=== PATIENT | female | born 1940 | race Caucasian/White ===

== ENCOUNTER 2020-04-04 07:12 | Outpatient (REF) | payer MEDICARE, SELFPAY ==
[2020-04-04 11:53] LABS: Creatinine Urine 49.93 mg/dL
[2020-04-04 12:01] LABS: Estimated Average Glucose 148 mg/dL; Hemoglobin A1c % 6.8 %
[2020-04-04 12:14] LABS: Alanine Aminotransferase 11 U/L (0-31); Anion Gap 15 (12-20); Blood Urea Nitrogen 12 mg/dL (9-16); Carbon Dioxide 28 mmol/L (22-29); Chloride 102 mmol/L (96-108); Estimated Glomerular Filt Rate > 60; Glucose Fasting 118 mg/dL (60-99); Potassium 4.9 mmol/l (3.3-5.1); Sodium 140 mmol/L (135-145)
== END 2020-04-04 07:13 | disposition home or self-care (01) ==
LOC: HO.HMGCLDS 07:12
PROVIDERS: PCP Family Medicine; Visit Provider Family Medicine
DX: I10 Essential (primary) hypertension (principal); E11.9 Type 2 diabetes mellitus without complications; E78.00 Pure hypercholesterolemia, unspecified; Z79.899 Other long term (current) drug therapy
CPT/HCPCS: 80051; 82043; 82550; 82565; 82947; 83036; 84460; 84520

== ENCOUNTER 2020-11-11 06:24 | Outpatient (REF) | payer MEDICARE, SELFPAY ==
[2020-11-11 12:14] LABS: Alanine Aminotransferase 8 U/L (0-31); Anion Gap 13 (12-20); Blood Urea Nitrogen 12 mg/dL (9-16); Carbon Dioxide 28 mmol/L (22-29); Chloride 104 mmol/L (96-108); Cholesterol 142 mg/dL; Estimated Glomerular Filt Rate > 60; Glucose Fasting 122 mg/dL (60-99); HDL Cholesterol 52 mg/dL; LDL Cholesterol Calculated 73 mg/dl; Potassium 4.5 mmol/L (3.3-5.1); Sodium 140 mmol/L (135-145); Triglycerides 88 mg/dL
[2020-11-11 12:15] LABS: Estimated Average Glucose 143 mg/dL; Hemoglobin A1c % 6.6 %
[2020-11-11 12:28] LABS: Creatinine Urine 53.13 mg/dL; Microalbum/Creatinine Ratio Ur 39.5 ug/mg cr
== END 2020-11-11 06:25 | disposition home or self-care (01) ==
LOC: HO.HMGCLDS 06:24
PROVIDERS: PCP Family Medicine; Visit Provider Family Medicine
DX: I10 Essential (primary) hypertension (principal); E11.9 Type 2 diabetes mellitus without complications; E78.00 Pure hypercholesterolemia, unspecified; Z79.899 Other long term (current) drug therapy
CPT/HCPCS: 36415; 80051; 80061; 82043; 82550; 82565; 82947; 83036; 84460; 84520

== ENCOUNTER 2021-04-30 06:21 | Outpatient (REF) | payer MEDICARE, SELFPAY ==
--- NOTE | 2021-04-30 06:33 | ECG_ITS ---
Test Reason : cp Blood Pressure : / mmHG Vent. Rate : 060 BPM Atrial Rate : 060 BPM P-R Int : 186 ms QRS Dur : 082 ms QT Int : 392 ms P-R-T Axes : 078 -19 074 degrees QTc Int : 392 ms Normal sinus rhythm Septal infarct , age undetermined Abnormal ECG When compared with ECG of 27-JUL-2019 07:46, Vent. rate has decreased BY 32 BPM QT has shortened Referred By: Som Mc Electronically Signed By:OLIVIA MAYERS MD
[2021-04-30 07:43] LABS: Estimated Average Glucose 137 mg/dL; Hemoglobin A1c % 6.4 %
[2021-04-30 07:46] LABS: Anion Gap 10 (12-20); Blood Urea Nitrogen 11 mg/dL (9-16); Carbon Dioxide 29 mmol/L (22-29); Chloride 102 mmol/L (96-108); Estimated Glomerular Filt Rate > 60; Glucose Fasting 133 mg/dL (60-99); Potassium 4.3 mmol/L (3.3-5.1); Sodium 137 mmol/L (135-145)
== END 2021-04-30 06:22 | disposition home or self-care (01) ==
LOC: HO.LAB 06:21
PROVIDERS: PCP Family Medicine; Visit Provider Family Medicine
DX: I10 Essential (primary) hypertension (principal); E11.9 Type 2 diabetes mellitus without complications
CPT/HCPCS: 36415; 80051; 82565; 82947; 83036; 84520; 93005

== ENCOUNTER 2021-10-26 06:33 | Outpatient (REF) | payer MEDICARE, SELFPAY ==
[2021-10-26 12:46] LABS: MANUAL DIFF FLAG NO
[2021-10-26 12:59] LABS: Basophils Absolute Auto 0.1 X10*3/uL (0.0-0.2); Basophils Percent Auto 1.2 % (0-2); Eosinophils Absolute Auto 0.2 X10*3/uL (0.0-0.4); Eosinophils Percent Auto 3.1 % (0-4); Hematocrit 40.2 % (37.0-47.0); Hemoglobin 12.5 g/dl (12.0-16.0); Imm Gran Abs Auto 0.02 X10*3/uL (0.00-0.03); Imm Gran Pct Auto 0.4 % (0.0-0.4); Lymphocytes Absolute Auto 1.1 X10*3/uL (1.2-4.9); Lymphocytes Percent Auto 21.1 % (20-40); Mean Corpuscular HGB Conc 31.1 g/dl (31.0-35.0); Mean Corpuscular Hemoglobin 26.1 pg (27.0-33.0); Mean Corpuscular Volume 83.9 fL (80.0-98.0); Mean Platelet Volume 9.9 fL (9.4-12.3); Monocytes Absolute Auto 0.4 X10*3/uL (0.1-1.2); Neutrophils Absolute Auto 3.4 x10*3/uL (2.0-8.3); Neutrophils Percent Auto 66.2 % (45-73); Platelet Count 155 X10*3/uL (160-400); Red Blood Count 4.79 X10*6/uL (4.20-5.50); Red Cell Distribution Width 14.2 % (11.0-16.0); White Blood Count 5.1 X10*3/uL (4.8-10.8)
[2021-10-26 13:14] LABS: Alanine Aminotransferase 13 U/L (0-31); Alkaline Phosphatase 74 U/L (39-117); Anion Gap 10 (12-20); Aspartate Amino Transferase 16 U/L (5-31); Bilirubin Total 0.4 mg/dL (0.0-1.0); Blood Urea Nitrogen 9 mg/dL (9-16); Carbon Dioxide 29 mmol/L (22-29); Chloride 100 mmol/L (96-108); Cholesterol 149 mg/dL; Estimated Glomerular Filt Rate > 60; Glucose Fasting 139 mg/dL (60-99); HDL Cholesterol 51 mg/dL; LDL Cholesterol Calculated 84 mg/dl; Lipase 37 U/L (8-78); Potassium 4.7 mmol/L (3.3-5.1); Sodium 134 mmol/L (135-145); Total Protein 6.1 g/dL (6.5-8.0); Triglycerides 73 mg/dL
[2021-10-26 13:19] LABS: Estimated Average Glucose 140 mg/dL; Hemoglobin A1c % 6.5 %
[2021-10-26 13:33] LABS: Microalbum/Creatinine Ratio Ur 29.9 ug/mg cr
== END 2021-10-26 06:34 | disposition home or self-care (01) ==
LOC: HO.HMGCLDS 06:33
PROVIDERS: Visit Provider Family Medicine
DX: R10.13 Epigastric pain (principal); E11.9 Type 2 diabetes mellitus without complications; E78.00 Pure hypercholesterolemia, unspecified; Z79.899 Other long term (current) drug therapy
CPT/HCPCS: 36415; 80053; 80061; 82043; 82550; 83036; 83690; 85025

== ENCOUNTER 2022-03-05 06:57 | Outpatient (REF) | payer MEDICARE, SELFPAY ==
[2022-03-05 12:17] LABS: Blood Urea Nitrogen 6 mg/dL (9-16); Estimated Glomerular Filt Rate > 60
== END 2022-03-05 06:58 | disposition home or self-care (01) ==
LOC: HO.HMGCLDS 06:57
PROVIDERS: PCP Family Medicine; Visit Provider Family Medicine
DX: I10 Essential (primary) hypertension (principal)
CPT/HCPCS: 36415; 82565; 84520

== ENCOUNTER 2022-04-28 06:35 | Outpatient (REF) | payer MEDICARE, SELFPAY ==
[2022-04-28 11:19] LABS: Appearance Urine Clear; Color Urine Yellow; Glucose Urine UA Negative (Negative); Leukocyte Esterase Urine Small (1+) (Negative); Nitrite Urine Negative (Negative); PH 7.5 (5.0-9.0); UMIC TRIGGER UA YES; Urine Blood Negative (Negative); Urine Ketones Negative (Negative); Urine Protein Negative (Neg-Trace)
[2022-04-28 11:35] LABS: Bacteria Urine None Seen (None Seen); Hyaline Casts Urine 0-2 /LPF (0-2); RBC Urine 0-2 /HPF (0-2)
[2022-04-28 14:22] LABS: MANUAL DIFF FLAG NO
[2022-04-28 14:33] LABS: Basophils Absolute Auto 0.1 X10*3/uL (0.0-0.2); Basophils Percent Auto 1.1 % (0-2); Eosinophils Absolute Auto 0.1 X10*3/uL (0.0-0.4); Eosinophils Percent Auto 2.1 % (0-4); Hematocrit 40.6 % (37.0-47.0); Hemoglobin 12.5 g/dl (12.0-16.0); Imm Gran Abs Auto 0.02 X10*3/uL (0.00-0.03); Imm Gran Pct Auto 0.4 % (0.0-0.4); Lymphocytes Absolute Auto 1.1 X10*3/uL (1.2-4.9); Lymphocytes Percent Auto 21.8 % (20-40); Mean Corpuscular HGB Conc 30.8 g/dl (31.0-35.0); Mean Corpuscular Hemoglobin 26.3 pg (27.0-33.0); Mean Corpuscular Volume 85.5 fL (80.0-98.0); Mean Platelet Volume 9.6 fL (9.4-12.3); Monocytes Absolute Auto 0.4 X10*3/uL (0.1-1.2); Monocytes Percent Auto 8.4 % (2-11); Neutrophils Absolute Auto 3.5 x10*3/uL (2.0-8.3); Neutrophils Percent Auto 66.2 % (45-73); Platelet Count 150 X10*3/uL (160-400); Red Blood Count 4.75 X10*6/uL (4.20-5.50); Red Cell Distribution Width 14.3 % (11.0-16.0); White Blood Count 5.2 X10*3/uL (4.8-10.8)
[2022-04-28 14:42] LABS: Estimated Average Glucose 131 mg/dL; Hemoglobin A1c % 6.2 %
[2022-04-28 15:36] LABS: Alanine Aminotransferase 10 U/L (0-31); Albumin Level 3.9 g/dL (3.5-5.0); Alkaline Phosphatase 75 U/L (39-117); Anion Gap 11 (12-20); Aspartate Amino Transferase 14 U/L (5-31); Bilirubin Total 0.3 mg/dL (0.0-1.0); Blood Urea Nitrogen 10 mg/dL (9-16); Calcium 9.1 mg/dL (8.4-10.2); Carbon Dioxide 29 mmol/L (22-29); Chloride 101 mmol/L (96-108); Estimated Glomerular Filt Rate > 60; Glucose Fasting 121 mg/dL (60-99); Potassium 4.2 mmol/L (3.3-5.1); Sodium 137 mmol/L (135-145); Total Protein 5.9 g/dL (6.5-8.0)
[2022-05-03 07:54] LABS: Carbohydrate Antigen 19-9 14 U/mL (<34)
== END 2022-04-28 06:36 | disposition home or self-care (01) ==
LOC: HO.HMGCLDS 06:35
PROVIDERS: PCP Family Medicine; Visit Provider Family Medicine
DX: R63.4 Abnormal weight loss (principal); E11.9 Type 2 diabetes mellitus without complications; Z87.19 Personal history of other diseases of the digestive system
CPT/HCPCS: 36415; 80053; 81001; 82378; 83036; 85025; 86301

== ENCOUNTER 2022-09-21 06:12 | Outpatient (REF) | payer MEDICARE, SELFPAY ==
[2022-09-21 11:52] LABS: Alanine Aminotransferase 10 U/L (0-31); Anion Gap 9 (12-20); Aspartate Amino Transferase 14 U/L (5-31); Blood Urea Nitrogen 9 mg/dL (9-16); Carbon Dioxide 31 mmol/L (22-29); Chloride 102 mmol/L (96-108); Estimated Glomerular Filt Rate > 60; Glucose Fasting 118 mg/dL (60-99); Potassium 4.4 mmol/L (3.3-5.1); Sodium 138 mmol/L (135-145)
[2022-09-21 12:16] LABS: Estimated Average Glucose 137 mg/dL; Hemoglobin A1c % 6.4 %
[2022-09-21 12:54] LABS: Creatinine Urine 42.86 mg/dL; Microalbum/Creatinine Ratio Ur 11.6 ug/mg cr
== END 2022-09-21 06:13 | disposition home or self-care (01) ==
LOC: HO.HMGCLDS 06:12
PROVIDERS: PCP Family Medicine; Visit Provider Family Medicine
DX: I10 Essential (primary) hypertension (principal); E78.00 Pure hypercholesterolemia, unspecified; E11.9 Type 2 diabetes mellitus without complications; Z79.899 Other long term (current) drug therapy
CPT/HCPCS: 36415; 80051; 82043; 82550; 82565; 82947; 83036; 84450; 84460; 84520

== ENCOUNTER 2023-01-13 06:30 | Outpatient (REF) | payer MEDICARE, SELFPAY ==
[2023-01-13 11:40] LABS: MANUAL DIFF FLAG NO
[2023-01-13 11:50] LABS: Basophils Absolute Auto 0.1 X10*3/uL (0.0-0.2); Eosinophils Absolute Auto 0.1 X10*3/uL (0.0-0.4); Eosinophils Percent Auto 2.4 % (0-4); Hematocrit 42.5 % (37.0-47.0); Hemoglobin 13.3 g/dl (12.0-16.0); Imm Gran Abs Auto 0.02 X10*3/uL (0.00-0.03); Imm Gran Pct Auto 0.4 % (0.0-0.4); Lymphocytes Absolute Auto 1.1 X10*3/uL (1.2-4.9); Lymphocytes Percent Auto 22.4 % (20-40); Mean Corpuscular HGB Conc 31.3 g/dl (31.0-35.0); Mean Corpuscular Hemoglobin 26.7 pg (27.0-33.0); Mean Corpuscular Volume 85.2 fL (80.0-98.0); Mean Platelet Volume 9.7 fL (9.4-12.3); Monocytes Absolute Auto 0.4 X10*3/uL (0.1-1.2); Monocytes Percent Auto 8.4 % (2-11); Neutrophils Absolute Auto 3.3 x10*3/uL (2.0-8.3); Neutrophils Percent Auto 65.4 % (45-73); Platelet Count 142 X10*3/uL (160-400); Red Blood Count 4.99 X10*6/uL (4.20-5.50); Red Cell Distribution Width 13.4 % (11.0-16.0); White Blood Count 5.1 X10*3/uL (4.8-10.8)
[2023-01-13 12:10] LABS: Anion Gap 12 (12-20); Carbon Dioxide 28 mmol/L (22-29); Chloride 100 mmol/L (96-108); Potassium 4.6 mmol/L (3.3-5.1); Sodium 135 mmol/L (135-145)
[2023-01-13 12:28] LABS: Erythrocyte Sedimentation Rate 2 MM/HR (0-20)
[2023-01-13 12:34] LABS: Free T4 (Free Thyroxine) 0.76 ng/dL (0.71-1.85)
== END 2023-01-13 06:31 | disposition home or self-care (01) ==
LOC: HO.HMGCLDS 06:30
PROVIDERS: Internal Medicine Cardiovascular Disease; PCP Family Medicine; Visit Provider Family Medicine
DX: R55 Syncope and collapse (principal); I10 Essential (primary) hypertension
CPT/HCPCS: 36415; 80051; 84439; 85025; 85652

== ENCOUNTER 2023-06-24 06:46 | Outpatient (REF) | payer MEDICARE, SELFPAY ==
[2023-06-24 11:52] LABS: Estimated Average Glucose 137 mg/dL; Hemoglobin A1C 150.6108 umol/L; Hemoglobin A1c % 6.4 % (<6.0)
[2023-06-24 11:59] LABS: Alanine Aminotransferase 22 U/L (0-31); Anion Gap 10 (12-20); Aspartate Amino Transferase 24 U/L (5-31); Blood Urea Nitrogen 10 mg/dL (9-16); Carbon Dioxide 27 mmol/L (22-29); Chloride 99 mmol/L (96-108); Cholesterol 160 mg/dL (<200); Estimated Glomerular Filt Rate > 60; Glucose Fasting 133 mg/dL (60-99); HDL Cholesterol 66 mg/dL (>40); LDL Cholesterol Calculated 83 mg/dL (<100); Potassium 4.2 mmol/L (3.3-5.1); Sodium 132 mmol/L (135-145); Triglycerides 58 mg/dL (<150)
[2023-06-24 12:03] LABS: Creatinine Urine 62.57 mg/dL; Microalbum/Creatinine Ratio Ur 43.1 ug/mg cr (<30)
== END 2023-06-24 06:47 | disposition home or self-care (01) ==
LOC: HO.HMGCLDS 06:46
PROVIDERS: PCP Family Medicine; Visit Provider Family Medicine
DX: I10 Essential (primary) hypertension (principal); E78.00 Pure hypercholesterolemia, unspecified; E11.9 Type 2 diabetes mellitus without complications
CPT/HCPCS: 36415; 80051; 80061; 82043; 82550; 82565; 82570; 82947; 83036; 84450; 84460; 84520

== ENCOUNTER 2023-12-16 07:06 | Outpatient (REF) | payer MEDICARE, SELFPAY ==
[2023-12-16 10:29] LABS: Creatinine Urine 103.73 mg/dL; Microalbum/Creatinine Ratio Ur 58.8 ug/mg cr (<30)
[2023-12-16 10:35] LABS: Alanine Aminotransferase 12 U/L (0-31); Anion Gap 12 (12-20); Aspartate Amino Transferase 22 U/L (5-31); Blood Urea Nitrogen 13 mg/dL (9-16); Carbon Dioxide 28 mmol/L (22-29); Chloride 100 mmol/L (96-108); Estimated Glomerular Filt Rate > 60; Potassium 4.4 mmol/L (3.3-5.1); Sodium 136 mmol/L (135-145)
[2023-12-16 10:53] LABS: Estimated Average Glucose 131 mg/dL; Hemoglobin A1c % 6.2 % (<6.0)
== END 2023-12-16 07:07 | disposition home or self-care (01) ==
LOC: HO.HMGCLDS 07:06
PROVIDERS: PCP Family Medicine; Visit Provider Family Medicine
DX: I10 Essential (primary) hypertension (principal); E11.9 Type 2 diabetes mellitus without complications; E78.00 Pure hypercholesterolemia, unspecified; Z79.899 Other long term (current) drug therapy
CPT/HCPCS: 36415; 80051; 82043; 82550; 82565; 82570; 83036; 84450; 84460; 84520

== ENCOUNTER 2024-02-20 13:54 | Outpatient (REF) | payer MEDICARE, SELFPAY ==
[2024-02-20 16:39] LABS: Blood Urea Nitrogen 10 mg/dL (9-16); Estimated Glomerular Filt Rate > 60
== END 2024-02-20 13:55 | disposition home or self-care (01) ==
LOC: HO.HMGCLDS 13:54
PROVIDERS: PCP Family Medicine; Visit Provider Family Medicine
DX: I10 Essential (primary) hypertension (principal)
CPT/HCPCS: 36415; 82565; 84520

== ENCOUNTER 2024-03-20 06:32 | Outpatient (REF) | payer MEDICARE, SELFPAY ==
[2024-03-20 06:48] LABS: MANUAL DIFF FLAG NO
[2024-03-20 07:45] LABS: Basophils Absolute Auto 0.1 X10*3/uL (0.0-0.2); Basophils Percent Auto 1.1 % (0-2); Eosinophils Absolute Auto 0.3 X10*3/uL (0.0-0.4); Eosinophils Percent Auto 4.6 % (0-4); Hematocrit 45.2 % (37.0-47.0); Imm Gran Abs Auto 0.02 X10*3/uL (0.00-0.03); Imm Gran Pct Auto 0.3 % (0.0-0.4); Lymphocytes Percent Auto 15.8 % (20-40); Mean Corpuscular Hemoglobin 26.5 pg (27.0-33.0); Mean Corpuscular Volume 85.4 fL (80.0-98.0); Mean Platelet Volume 9.9 fL (9.4-12.3); Monocytes Absolute Auto 0.5 X10*3/uL (0.1-1.2); Monocytes Percent Auto 7.8 % (2-11); Neutrophils Absolute Auto 4.6 x10*3/uL (2.0-8.3); Neutrophils Percent Auto 70.4 % (45-73); Platelet Count 148 X10*3/uL (160-400); Red Blood Count 5.29 X10*6/uL (4.20-5.50); Red Cell Distribution Width 13.6 % (11.0-16.0); White Blood Count 6.5 X10*3/uL (4.8-10.8)
[2024-03-20 07:58] LABS: Estimated Average Glucose 140 mg/dL; Hemoglobin A1C 174.7069 umol/L; Hemoglobin A1c % 6.5 % (<6.0); Total Hemoglobin (HGBA1C) 3711.9086 umol/L
[2024-03-20 08:22] LABS: Alanine Aminotransferase 21 U/L (0-31); Albumin Level 4.5 g/dL (3.5-5.0); Alkaline Phosphatase 71 U/L (39-117); Anion Gap 11 (12-20); Aspartate Amino Transferase 28 U/L (5-31); Bilirubin Total 0.4 mg/dL (0.0-1.0); Blood Urea Nitrogen 8 mg/dL (9-16); Calcium 9.6 mg/dL (8.4-10.2); Carbon Dioxide 27 mmol/L (22-29); Chloride 103 mmol/L (96-108); Estimated Glomerular Filt Rate > 60; Glucose Fasting 131 mg/dL (60-99); Potassium 4.1 mmol/L (3.3-5.1); Sodium 137 mmol/L (135-145); Total Protein 7.1 g/dL (6.5-8.0)
[2024-03-22 19:49] LABS: Homocysteine 10.7 umol/L (<10.4)
[2024-03-25 07:17] LABS: Methylmalonic Acid 112 nmol/L (85-423)
[2024-03-25 17:08] LABS: Vitamin D 25-OH, D2 <4 ng/mL; Vitamin D 25-OH, D3 25 ng/mL; Vitamin D 25-OH, Total 25 ng/mL (30-100)
== END 2024-03-20 06:33 | disposition home or self-care (01) ==
LOC: HO.LAB 06:32
PROVIDERS: PCP Family Medicine; Visit Provider Family Medicine
DX: I10 Essential (primary) hypertension (principal); E11.9 Type 2 diabetes mellitus without complications; G25.2 Other specified forms of tremor; R41.81 Age-related cognitive decline
CPT/HCPCS: 36415; 80053; 82306; 83036; 83090; 83921; 85025

== ENCOUNTER 2025-01-16 12:53 | Outpatient (AMB) | payer MEDICARE, SELFPAY ==
--- NOTE | 2025-01-16 12:59 | A.OFFPC_ITS ---
Vital Signs 01/16/25 13:10 Height 5 ft 2 in Weight 60.781 kg BMI 24.5 BP 170/70 H Respiration 16 Pulse 55 Pulse Source Pulse Oximeter Temp 97.9 F Temp Source Temporal Artery Scan Pulse Oximetry (%) 98 Oxygen Delivery Method Room Air Intake Visit Reasons: Routine / Dr Mc Fermentation Manager Required: No Accompanied by: Daughter Allergies cephalexin (From Keflex) Allergy (Mild, Verified 01/16/25 13:04) Hives clindamycin Allergy (Mild, Verified 01/16/25 13:04) Hives Medication List - Last Reconciled 01/16/25 by MOR Martinez aspirin 81 mg PO DAILY cholecalciferol (vitamin D3) 50 mcg PO DAILY docusate sodium (Colace) 100 mg PO DAILY isosorbide mononitrate ER 60 mg PO DAILY lisinopril 30 mg PO DAILY memantine 14 mg PO DAILY metformin 500 mg PO DAILY primidone 125 mg PO TID propranolol 60 mg PO BID quetiapine 25 mg PO BEDTIME quetiapine (Seroquel) 25 mg PO BID PRN simvastatin 40 mg PO BEDTIME Tobacco use date assessed: 01/16/25 Fall risk assessment: 2 + Falls in past year Last assessed Fall Risk: 01/16/25 Dental Screening Dental Screen Date: 01/16/25 Did you have a dental visit in the last 12 months?: Yes Did you have a dental problem in the last 6 months where you did not have access to dental care?: No Was dental information given to patient?: No HPI HPI Comments History of Present Illness Details 84-year-old female with history of essen tial tremor, aortic valve insufficiency, vascular parkinsonism, ataxic gait, hypertension, type 2 diabetes, hypercholesterolemia, venous insufficiency, vascular dementia presents to the office today for management of chronic conditions and to establish care. Daughter, Jennifer, who is HCP and POA present for visit. Parkinsonism/vascular dementia- no longer following with a neurologist. On primidone and propranolol for tremor. nneds hayde Lives in her home with 24 hour homecare as well as children. No longer driving. Able to dress, bathe, helps to cook. Daughter in charge of bills and appts. No recent falls. No assistive device, though they are available. Type 2 diabetes-due for A1c, last A1c 6.5%. Diet-controlled. Also metformin Hypertension- BP at home 130-150 sbp. In office 170/70, 160/62. On lisinopril 20 and propranolol 60mg bid. Hx syncope years ago d/t hypotension, therefore lisinopril decreased Venous insufficiency-no edema Essential tremor- primidone and propranolol Concerns: None Health maintenance: No longer undergoing mammograms or colonoscopy ROS: General: No fevers, malaise, unintentional weight loss HEENT: No blurred vision, diplopia. No sore throat, nasal congestion, rhinorrhea, sinus pain, ear pain Cardiovascular: No chest pain, palpitations, or leg edema Respiratory: No shortness of breath, wheezing, cough GI: No abdominal pain, nausea, vomiting, diarrhea, constipation, melena, hematochezia : No dysuria, hematuria, increased urinary frequency, decreased urinary output MSK: No myalgia, back pain Neuro: No headaches, weakness, paresthesias Skin: No rashes or lesions EXAM: Constitutional - Awake and Alert, No apparent distress Eyes - PERRL Cardiovascular - S1S2, RRR, No edema Respiratory - Normal lung expansion, Normal respiratory effort, No respiratory distress, CTA bilaterally Extremities - no calf tenderness bilaterally, no swelling Skin - Warm/Dry Neurological - Alert & oriented x3 Psychological - Appropriate affect [facility] Medical History Venous insufficiency Vascular dementia Hypercholesterolemia Hypertension Ataxic gait Vascular parkinsonism Aortic valve insufficiency Essential tremor Type 2 diabetes mellitus Social History Housing: House Patient Tobacco Use Status: Former Tobacco user (Quite in 1984) e-Cigarette/Vaping Use: Never Used service: No Current occupational status: retired Cognitive needs: No Hearing needs: No Vision needs: Yes (Rx glasses) Questionnaire PHQ-9 Over the last 2 weeks, how often have you been bothered by any of the following problems? 1. Little interest or pleasure in doing things: not at all 2. Feeling down, depressed, or hopeless: not at all 3. Trouble falling or staying asleep, or sleeping too much: several days 4. Feeling tired or having little energy: more than half the days 5. Poor appetite or overeating: not at all 6. Feeling bad about yourself - or that you are a failure or have let yourself or your family down: not at all 7. Trouble concentrating on things, such as reading the newspaper or watching television: nearly every day 8. Moving or speaking so slowly that other people could have noticed. Or the opposite - being so fidgety or restless that you have been moving around a lot more than usual: more than half the days 9. Thoughts that you would be better off or of hurting yourself in some way: not at all Total score: 8 Source: Developed by Drs. Kevin Hoover, Vandana Boston, Lior Ventura and colleagues, with an educational bill from [employer]. Thrive Questionnaire Date Thrive assessed: 01/16/25 I am a: Patient What is your living situation today?: I have a steady place to live Within the past 12 months, did the food you bought not last and you didn't have the money to get more?: Never true Within the past 12 months, did you worry whether your food would run out before you got money to buy more?: Never true Do you have trouble paying for medicines?: No Do you have trouble getting transportation to medical appointments?: No Do you have trouble paying your heating and electricity bill?: No Do you have trouble taking care of your child, family member or friend?: No Do you have trouble with day-to-day activities such as bathing, preparing meals, shopping, managing finances, etc.?: No Are you currently unemployed and looking for a job?: No Are you interested in more education?: No Please select the resources that you would like help with: None THRIVE Score: 0 MARIKA-7 AMB Questionnaire MARIKA-7 Date MARIKA - 7 assessed: 01/16/25 Feeling nervous, anxious, or on edge: 1 = Several days Not being able to stop or control worryin = Several days Worrying too much about different things: 1 = Several days Trouble relaxin = Several days Being so restless that it is hard to sit still: 1 = Several days Becoming easily annoyed or irritable: 1 = Several days Feeling afraid as if something awful might happen: 0 = Not at all Total MARIKA-7 score (0-4 normal; 5-9 mild; 10-14 moderate; 15-21 severe): 6 Source: Developed by Drs. Kevin Hoover, Vandana Boston, Lior Ventura and colleagues, with an educational bill from [employer]. Physical exam (Primary Care) Vital Signs: Last Vital Signs Temp 97.9 F 01/16/25 13:10 Pulse 55 01/16/25 13:10 Resp 16 01/16/25 13:10 BP 170/70 H 01/16/25 13:10 Pulse Ox 98 01/16/25 13:10 Oxygen Delivery Method Room Air 01/16/25 13:10 BMI result Body Mass Index 24.5 Coding Level of Care Code New Pt Level 4 (16335) Complex EM visit Add On G2211 Diagnoses Type 2 diabetes mellitus E11.9 Vascular parkinsonism G21.4 Hypertension I10 Hypercholesterolemia E78.00 Vascular dementia F01.50 Assessment & Plan Assessment & Plan (1) Type 2 diabetes mellitus: Code(s): E11.9 - Type 2 diabetes mellitus without complications Category: Medical Plan: A1c ordered. Continue metformin, diabetic diet (2) Vascular parkinsonism: Code(s): G21.4 - Vascular parkinsonism Category: Medical Plan: Stable. Continue with 24 hour care and assistance with ADLs. Recommend against driving. Continue memantine (3) Hypertension: Code(s): I10 - Essential (primary) hypertension Category: Medical Plan: Uncontrolled. Increase lisinopril to 30 mg daily. Follow up in the office for nurse visit for blood pressure check in 2 weeks (4) Hypercholesterolemia: Code(s): E78.00 - Pure hypercholesterolemia, unspecified Category: Medical Plan: Lipid panel ordered. Continue simvastatin (5) Vascular dementia: Code(s): F01.50 - Vascular dementia, unspecified severity, without behavioral disturbance, psychotic disturbance, mood disturbance, and anxiety Category: Medical Plan: As above Plan Follow-up in the office in 2-weeks for nurse blood pressure check as well as 4 months in the office with me. Labs to be completed today Orders: Orders Lipid Panel Today E11.9 - Type 2 diabetes mellitus without complications, E78.00 - Pure hypercholesterolemia, unspecified, I10 - Essential (primary) hypertension Microalbumin, Random (w Creat) Today E11.9 - Type 2 diabetes mellitus without complications, E78.00 - Pure hypercholesterolemia, unspecified, I10 - Essential (primary) hypertension Basic Metabolic Panel Today E11.9 - Type 2 diabetes mellitus without complications, E78.00 - Pure hypercholesterolemia, unspecified, I10 - Essential (primary) hypertension Comprehensive Trinity. Panel Fast Today E11.9 - Type 2 diabetes mellitus without complications, E78.00 - Pure hypercholesterolemia, unspecified, I10 - Essential (primary) hypertension Hemoglobin A1c Today E11.9 - Type 2 diabetes mellitus without complications, E78.00 - Pure hypercholesterolemia, unspecified, I10 - Essential (primary) hypertension Medications: New simvastatin 40 mg PO BEDTIME 90 tabs 1RF propranolol 60 mg PO BID 180 tabs 1RF quetiapine (Seroquel) 25 mg PO BID PRN 90 tabs 1RF agitation lisinopril 30 mg PO DAILY 90 tabs 1RF
[2025-01-16 13:10] VITALS: BP 170/70; PULSE 55; RESP 16; TEMP 36.6; O2SAT 98; BMI 24.5
--- OUTSIDE RECORDS SUMMARY | 2025-01-16 15:16 | XMS_ITS | Patient Health Record ---
[facility] [place] Address [address] [place] [address] Care Team Providers Care Gas Meter Mechanic Name Role Phone Som Mc MD Primary Care Provider Reynold Jaimes Unavailable [phone] Allergies Allergen (clinical drug ingredient) Drug/Non Drug Allergy documented on EMR Reaction Allergy Type Onset Date Status clindamycin Clindamycin HCl rash, hives Drug Allergy Active Keflex hives, rash Drug Allergy Activ e Reason For Referral No Information Medications Medication SIG (Take, Route, Frequency, Duration) Notes Start Date End Date Status metFORMIN HCl 1000 MG (OSM) 1 tablet wit h evening meal Orally Once a day; Duration: 30 day(s) Active Simvastatin 40 MG 1 tablet every eveni ng Orally Once a day; Duration: 30 day(s) Active Lisinopril 20 MG 1 tablet Orally Once a day; Duration: 30 day(s) Active Ziac 5-6.25 MG 1 tablet Orally Once a day; Duration: 30 day(s) Active Lysine 500 MG as directed Orally Active Calcium 500 MG 1 tablet with meals Orally Twice a day; Duration: 30 day(s) Active CoQ-10 100 MG 1 capsule with a amna l Orally Once a day; Duration: 30 day(s) Active Aspirin 81 MG 1 tablet Orally Once a day; Duration: 30 day(s) Active Problems Problem Type SNOMED Code ICD Code Onset Dates Problem Status W/U Status Risk Notes Problem Bursitis (19796022) Bursitis (727.3) Active confirmed Problem 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, Congenital (754.61) Active confirmed Problem Myositis (59256773) Myositis (729.1) Active confirmed Problem Pain in limb (45770223) Pain in Limb (729.5) Active confirmed Problem Plantar fasciitis (787547841) Plantar Fasciitis (728.71) Active confirmed Plan Of Treatment Pending Test Test Name Order Date X ray : Foot, right 2V 12/30/2011 [id number] TENDON SHEATH/LIGAMENT 0 12/30/2011 Insurance Providers Payer Name Payer Address Payer Phone Subscriber Number Group Number Insured Name Patient Relationship to Insured Coverage Start Date Coverage End Date Medicare National [employer] [address] [facility] [place] [address] [id number] Keena Diaz Self - patient is the insured [employer] [address] [place] [address] [id number] Keena Diaz Self - patient is the insured Medical (General) History Medical History History ICD Code diabetic high blood pressure chicken pox Surgical History Surgery Date(Month/Year) eptopic 1975 cataract surgery 2010 bunionectomy 2004
--- OUTSIDE RECORDS SUMMARY | 2025-01-16 15:16 | XMS_ITS | Clinical Summary ---
Author Organization [facility] Address [address] [address] Phone Care Team Providers Care Street Light Servicer Supervisor Name Role Phone Som Mc MD Primary Care Provider Allergies Active Allergy Reactions Criticality Noted Date Comments Clindamycin Hcl Hives 12/25/2018 rash Cephalexin Hives 12/25/2018 rash Medications metFORMIN (GLUCOPHAGE) 500 MG tablet Take 500 mg by mouth 2 (two) times a day with meals. Active simvastatin (ZOCOR) 40 MG tablet Take 40 mg by mouth nightly at bedtime. Active metoprolol tartrate (LOPRESSOR) 50 MG tablet Take 50 mg by mouth 2 (two) times a day. Active lisinopril (PRINIVIL,ZESTR IL) 40 MG tablet Take 40 mg by mouth daily. Active aspirin 81 MG EC tablet Take 81 mg by mouth daily. Active calcium carbonate-vitam in D3 1,250 mg (500 mg elemental)-400 units per tablet Take 1 tablet by mouth daily. Active ascorbic acid, vitamin C, (VITAMIN C) 500 MG tablet Take 500 mg by mouth daily. Active lysine 500 mg Tab Take by mouth daily. Active ubidecarenone/v itamin E mixed (COQ10 SG 100 ORAL) Take by mouth. Active hydroCHLOROthia zide (HYDRODIURIL) 12.5 MG tablet Take 12.5 mg by mouth daily. Active meloxicam (MOBIC) 15 MG tablet Take 15 mg by mouth daily. Active amLODIPine (NORVASC) 10 MG tablet Take 10 mg by mouth daily. Active docusate sodium (COLACE) 50 MG capsule Take by mouth 2 (two) times a day. Active Family History Medical History Relation Comments Cancer Father Heart disease Father No Known Problems Mother Heart disease Unspecified Clotting disorder Neg Hx Collagen disease Neg Hx Depression Neg Hx Diabetes Neg Hx Dislocations Neg Hx Gout Neg Hx Infl. arthritis Neg Hx Osteoporosis Neg Hx Scoliosis Neg Hx Relation Status Comments Father Mother Unspecified Social History Tobacco Use Types Packs/Day Years Used Date Smoking Tobacco: Former Cigarettes Q uit: 1985 Smokeless Tobacco: Former Education Answer Date Recorded Are you interested in more education? Not on emma e 09/10/2022 Are you concerned about learning? Not on file 09/10/2022 No 09/10/2022 No 09/10/2022 Digital Access Answer Date Recorded No 10/09/2022 No 10/09/2022 No 10/09/2022 Reliable internet access at home? Not on file 10/09/2022 Device with a working camera? Not on file Comments Unknown Sex and Gender Information Value Date Recorded Sex Assigned at Not on file Legal Sex Female 1:06 PM EDT Gender Identity Not on file Sexual Orientation Not on file Last Filed Vital Signs Vital Sign Reading Time Taken Comments Blood Pressure 157/70 12/25/2018 9:13 AM EDT Pulse 62 12/25/2018 9:13 AM EDT Temperature - - Respiratory Rate - - Oxygen Saturation - - Inhaled Oxygen Concentration - - Weight 71.2 kg (157 lb) 12/25/2018 9:13 AM EDT Height 154.9 cm (5' 1 ) 12/25/2018 9:13 AM EDT Body Mass Index 29.66 12/25/2018 9:13 AM EDT Plan of Treatment Health Maintenance Due Date Last Done Comments CREATININE LEVEL 1941 POTASSIUM LEVEL 1941 DEPRESSION SCREENING 1953 ZOSTER VACCINES (1 of 2) 1991 OSTEOPOROSIS SCREENING INITIAL (ONE-TIME) 2006 RSV VACCINE (1 - 1-dose 75+ series) 2016 PNEUMOCOCCAL VACCINES (50+ years) (2 of 2 - PCV) 02/26/2017 02/27/2016 INFLUENZA VACCINE (#1) 2024 0, 02/16/2019, 01/23/2018, Additional history exists COVID-19 VACCINE (3 - season) 2025 07/15/2020, 06/24/2020 Adult Td,Tdap Booster 10/31/2026 10/31/2016 HEPATITIS A VACCINES Aged Out No long er eligible based on patient's age to complete this topic HIB VACCINES Aged Out No longer eligi ble based on patient's age to complete this topic MENINGOCOCCAL VACCINES (ACWY) Aged Out No longer eligible based on patient's age to complete this topic MENINGOCOCCAL VACCINES (B) Aged Out N o longer eligible based on patient's age to complete this topic Medical Devices Not on file Insurance [place] & [place] [id number] [facility] MEDEX SUPPLEMENT MEDICARE PART A & B [place] SUPPLEMENT MEDICARE PART A & B [place] MED[employer] SUPPLEMENT MEDICARE PART A & [place] [employer] SUPPLE[place] MEDICARE PART A & [place] [employer] SUPPLEMENT MEDICARE PART A & [place] [employer] SUPPLEMENT MEDICARE PART A & [place] MED[employer] SUPPLEMENT MEDICARE PART A & B [place] [employer] SUPPLEMENT MEDICARE PART A & B [employer] MEDEX SUPPLEMENT Care Teams Street Light Servicer Supervisor Relationship Specialty Start Date End Date Som Mc MD [address] [place] [address] Dr [facility] [place] [address] PCP - General Internal Medicine 11/09/18 Additional Source Comments The information contained in this document represents components of the legal health record. It is not the complete legal health record.[facility]
== END 2025-01-16 13:30 | disposition home or self-care (01) ==
LOC: HO.HMCHD 12:54
PROVIDERS: PCP Family Medicine; Visit Provider Physician Assistant
DX: E11.9 Type 2 diabetes mellitus without complications (principal); G21.4 Vascular parkinsonism; I10 Essential (primary) hypertension; E78.00 Pure hypercholesterolemia, unspecified; F01.50 Vascular dementia, unspecified severity, without behavioral disturbance, psychotic disturbance, mood disturbance, and anxiety

== ENCOUNTER → 2025-01-16 12:53 | Outpatient (BNVA) | payer MEDICARE, SELFPAY | PROVIDERS: PCP Family Medicine; Visit Provider Physician Assistant | DX: E11.9 Type 2 diabetes mellitus without complications (principal); G21.4 Vascular parkinsonism; I10 Essential (primary) hypertension; E78.00 Pure hypercholesterolemia, unspecified; F01.50 Vascular dementia, unspecified severity, without behavioral disturbance, psychotic disturbance, mood disturbance, and anxiety; Z79.899 Other long term (current) drug therapy; Z13.30 Encounter for screening examination for mental health and behavioral disorders, unspecified; Z13.39 Encounter for screening examination for other mental health and behavioral disorders | CPT/HCPCS: 96127; 99202 ==